=== PATIENT | male | born 1960 | race Caucasian/White ===

== ENCOUNTER 2021-09-02 13:00 | Inpatient (IN) | payer OTHER ==
[~2021-09-02] VITALS: Ht 175.3 cm; Wt 63.5 kg
[~2021-09-02 13:00] MED LIST: IBUP600 PO
[2021-09-02 15:35] LABS: BASOPHILS ABSOLUTE AUTO 0.03 K/mm3 (0.00-0.23); BASOPHILS PERCENT AUTO 0 % (0-2); EOSINOPHILS PERCENT AUTO 0 % (0-6); Hemoglobin 12.2 g/dL (13.5-17.5); IMMATURE GRAN ABSOLUTE AUTO 0.04 K/mm3 (0.00-0.10); IMMATURE GRAN PERCENT AUTO 0 % (0-1); LYMPHOCYTES ABSOLUTE AUTO 1.47 K/mm3 (0.84-5.20); LYMPHOCYTES PERCENT AUTO 13 % (21-46); MONOCYTES ABSOLUTE AUTO 1.35 K/mm3 (0.16-1.47); MONOCYTES PERCENT AUTO 12 % (4-13); Mean Corpuscular HGB 35.5 pg (26.0-34.0); Mean Corpuscular HGB Conc 35.9 g/dL (31.5-36.5); Mean Corpuscular Volume 99 fL (80-100); NEUTROPHILS ABSOLUTE AUTO 8.33 K/mm3 (1.96-9.15); NEUTROPHILS PERCENT AUTO 74 % (41-73); Platelet Count 188 K/mm3 (150-400); RDW Coefficient Variation 12.1 % (11.7-14.2); RDW Standard Deviation 43.9 fL (35.1-46.3); Red Blood Cell Count 3.44 M/mm3 (4.30-5.90); White Blood Cell Count 11.22 K/mm3 (4.00-11.30)
[2021-09-02 16:12] LABS: Influenza A, PCR NEGATIVE (NEGATIVE); Influenza B, PCR NEGATIVE (NEGATIVE); Resp Syncytial Virus, PCR NEGATIVE (NEGATIVE); SARS-Cov-2 (COVID-19) PCR, MMC NEGATIVE (NEGATIVE)
[2021-09-02 18:55] LABS: Alanine Aminotransfer (ALT/SGP 129 U/L (12-78); Albumin, Blood 2.9 g/dL (3.4-5.0); Albumin/Globulin Ratio 0.6 (0.8-1.8); Alk Phos 78 U/L (50-136); Anion Gap 8 mmol/L (6-16); Aspartate Aminotrans (AST/SGOT 124 U/L (12-37); Bilirubin, Total 1.3 mg/dL (0.1-1.0); Blood Urea Nitrogen 10 mg/dL (8-24); Bun/Creatinine Ratio 21.6 (12.0-20.0); CO2, Blood 21 mmol/L (21-32); Calcium, Blood 8.6 mg/dL (8.5-10.1); Chloride, Blood 102 mmol/L (98-108); Creatinine, Blood 0.46 mg/dL (0.60-1.20); Globulin, Blood 4.8 g/dL (2.2-4.0); Glomerular Filtration Rate >60 (60-); Glucose, Blood 173 mg/dL (70-99); Potassium, Blood 3.7 mmol/L (3.5-5.5); Sodium, Blood 131 mmol/L (136-145); Total Protein, Blood 7.7 g/dL (6.4-8.2)
--- NOTE | 2021-09-02 20:26 | NUR ---
PT ARRIVED FROM ED AT 1999 AND WAS ADMITTED IN 213
[2021-09-03 04:17] LABS: BASOPHILS ABSOLUTE AUTO 0.06 K/mm3 (0.00-0.23); BASOPHILS PERCENT AUTO 1 % (0-2); EOSINOPHILS ABSOLUTE AUTO 0.04 K/mm3 (0.00-0.68); EOSINOPHILS PERCENT AUTO 0 % (0-6); Hematocrit 30.4 % (37.0-53.0); IMMATURE GRAN ABSOLUTE AUTO 0.06 K/mm3 (0.00-0.10); IMMATURE GRAN PERCENT AUTO 1 % (0-1); LYMPHOCYTES ABSOLUTE AUTO 3.63 K/mm3 (0.84-5.20); LYMPHOCYTES PERCENT AUTO 27 % (21-46); MONOCYTES ABSOLUTE AUTO 2.05 K/mm3 (0.16-1.47); MONOCYTES PERCENT AUTO 16 % (4-13); Mean Corpuscular HGB 35.7 pg (26.0-34.0); Mean Corpuscular HGB Conc 36.2 g/dL (31.5-36.5); Mean Corpuscular Volume 99 fL (80-100); Mean Platelet Volume 9.7 fL (9.1-12.4); NEUTROPHILS PERCENT AUTO 56 % (41-73); Platelet Count 169 K/mm3 (150-400); RDW Coefficient Variation 12.1 % (11.7-14.2); RDW Standard Deviation 43.8 fL (35.1-46.3); Red Blood Cell Count 3.08 M/mm3 (4.30-5.90); White Blood Cell Count 13.24 K/mm3 (4.00-11.30)
--- NOTE | 2021-09-03 04:25 | NUR ---
PT REMAINS IN BED ALL NIGHT SINCE HE ARRIVED IN THIS RM FROM THE ED. ALERT AND ORIENTED WITH EPISODES OF FORGETFULNESS. HE HAS BROKEN LEFT HIP, AFFECTED AREA IS OBSERVED TO BE SWOLLEN WHILE PT HAS DIFFICULTY IN MOVING THE LEFT LEG. HE REMAINS LYING IN A SUPINE POSITION, STAFF ATTEMPTED TO ASSIST HIM WITH CLEANING AND REPOSITIONING MULTIPLE TIMES AND WERE UNSUCCESSFUL PT REFUSED TO COOPERATE. HE IS MEDICATED FOR PAIN, VITAL SIGNS ARE ACCEPTABLE, CIRCULATION IN THE LOWER EXTREMITY IS ACCEPTABLE EVIDENCED BY WARMTH, PALPABLE PULSE, AND CAP REFILL. HIS CALL LIGHT WAS PLACED NEAR HIM AND WAS ENCOURAGED TO CALL FOR HELP WHEN ASSISTANCE IS NEEDED HE IS MONITORED.
[2021-09-03 05:01] LABS: Alanine Aminotransfer (ALT/SGP 111 U/L (12-78); Albumin, Blood 2.8 g/dL (3.4-5.0); Albumin/Globulin Ratio 0.7 (0.8-1.8); Alk Phos 75 U/L (50-136); Anion Gap 9 mmol/L (6-16); Aspartate Aminotrans (AST/SGOT 107 U/L (12-37); Bilirubin, Total 1.9 mg/dL (0.1-1.0); Blood Urea Nitrogen 11 mg/dL (8-24); Bun/Creatinine Ratio 24.1 (12.0-20.0); CO2, Blood 23 mmol/L (21-32); Calcium, Blood 8.7 mg/dL (8.5-10.1); Chloride, Blood 101 mmol/L (98-108); Creatinine, Blood 0.46 mg/dL (0.60-1.20); Globulin, Blood 4.2 g/dL (2.2-4.0); Glomerular Filtration Rate >60 (60-); Glucose, Blood 109 mg/dL (70-99); Potassium, Blood 3.8 mmol/L (3.5-5.5); Sodium, Blood 133 mmol/L (136-145)
--- NOTE | 2021-09-03 13:41 | NUR ---
History, Chart, Medications and Allergies reviewed before start of procedure.Pre-Op teaching done. Pt verbalizes understanding. Lungs clear T/O to Auscultation.
--- NOTE | 2021-09-03 17:05 | NUR ---
09/03/21 1705 Lauren Wang INITIAL OR END TIME OF 163--INCIDENT WHERE PATIENT LEG FELL IN HANA TABLE. ANTONINO RETURNED TO OR TO CHECK PATIENT AND XR CALL BACK TO CHECK HIP NAIL PLACEMENT. NAIL PLACEMENT OK'D AND PATIENT DOING WELL. OUT OF OR TIME 1656.
--- NOTE | 2021-09-03 18:20 | NUR ---
PATIENT ARRIVED BACK TO ROOM FROM PACU. AQUACEL DRESSING TO LEFT HIP CDI. PATIENT AWAKENS WHEN ASKED, BUT FALLS BACK TO SLEEP. PATIENT DRANK SOME WATER AND ATE SOME APPLESAUCE, TOLERATED WELL. ADVANCE DIET TO REGULAR PER ORDERS. NO SIGNS OR SYMPTOMS ACUTE DISTRESS NOTED. CALL LIGHT AND WATER IN EASY REACH. ABLE TO MAKE NEEDS AND WANTS KNOWN. ROOM AIR, LUNG SOUNDS DIMINISHED, ENCOURAGED TO COUGH AND DEEP BREATH. WILL MONITOR.
--- NOTE | 2021-09-04 00:05 | NUR ---
PT IN BED AND IS RESTING. DENIES PAIN AT THIS TIME, ASSISTED WITH CARE / ADLS, ASSISTED WITH BATHROOM AND TOILETING NEEDS. ASSISTED WITH TURNING AND REPOSITIONING TO ENHANCE COMFORT, MEDICATED INDICATED. LEFT HIP DRESSING AT THE INCISION SITE IS DRY AND PATENT. PT'S CALL MCCURDY PLACED NEAR HIM AND URGED TO CALL FOR HELP WHEN ASSISTANCE IS NEEDED HE IS MONITORED.
[2021-09-04 04:38] LABS: BASOPHILS ABSOLUTE AUTO 0.01 K/mm3 (0.00-0.23); BASOPHILS PERCENT AUTO 0 % (0-2); EOSINOPHILS PERCENT AUTO 0 % (0-6); Hematocrit 24.9 % (37.0-53.0); Hemoglobin 8.7 g/dL (13.5-17.5); IMMATURE GRAN ABSOLUTE AUTO 0.05 K/mm3 (0.00-0.10); IMMATURE GRAN PERCENT AUTO 0 % (0-1); LYMPHOCYTES ABSOLUTE AUTO 1.99 K/mm3 (0.84-5.20); LYMPHOCYTES PERCENT AUTO 18 % (21-46); MONOCYTES ABSOLUTE AUTO 1.83 K/mm3 (0.16-1.47); MONOCYTES PERCENT AUTO 16 % (4-13); Mean Corpuscular HGB 35.4 pg (26.0-34.0); Mean Corpuscular HGB Conc 34.9 g/dL (31.5-36.5); Mean Corpuscular Volume 101 fL (80-100); Mean Platelet Volume 9.7 fL (9.1-12.4); NEUTROPHILS ABSOLUTE AUTO 7.38 K/mm3 (1.96-9.15); NEUTROPHILS PERCENT AUTO 66 % (41-73); Platelet Count 159 K/mm3 (150-400); RDW Coefficient Variation 12.1 % (11.7-14.2); RDW Standard Deviation 45.1 fL (35.1-46.3); Red Blood Cell Count 2.46 M/mm3 (4.30-5.90); White Blood Cell Count 11.26 K/mm3 (4.00-11.30)
[2021-09-04 05:10] LABS: Alanine Aminotransfer (ALT/SGP 79 U/L (12-78); Albumin, Blood 2.2 g/dL (3.4-5.0); Albumin/Globulin Ratio 0.6 (0.8-1.8); Alk Phos 61 U/L (50-136); Anion Gap 8 mmol/L (6-16); Aspartate Aminotrans (AST/SGOT 79 U/L (12-37); Bilirubin, Total 1.4 mg/dL (0.1-1.0); Blood Urea Nitrogen 9 mg/dL (8-24); Bun/Creatinine Ratio 19.2 (12.0-20.0); CO2, Blood 22 mmol/L (21-32); Calcium, Blood 7.9 mg/dL (8.5-10.1); Chloride, Blood 101 mmol/L (98-108); Creatinine, Blood 0.47 mg/dL (0.60-1.20); Globulin, Blood 3.9 g/dL (2.2-4.0); Glomerular Filtration Rate >60 (60-); Glucose, Blood 145 mg/dL (70-99); Potassium, Blood 3.7 mmol/L (3.5-5.5); Sodium, Blood 131 mmol/L (136-145); Total Protein, Blood 6.1 g/dL (6.4-8.2)
--- NOTE | 2021-09-04 16:42 | NUR ---
PATIENT CURRENTLY LYING IN BED WITH NO SIGNS OR SYMPTOMS ACUTE DISTRESS NOTED. MEDICATED FOR PAIN PER ORDERS TODAY, MED EFFECTIVE. PATIENT REFUSED TO WORK WITH PT/OT TODAY. PATIENT IS DOING LEG EXERCISES IN BED OFTEN. HE SAYS HE WILL WORK WITH THERAPY TOMORROW. NO COMPLAINTS OF NAUSEA VOICED. WILL MONITOR.
--- NOTE | 2021-09-05 04:25 | NUR ---
PT IS RECOVERING FROM LEFT HIP SURGERY POST FALL AND FRACTURE. HE IS IN BED AT THIS TIME WHERE HE REMAINS THROUGHOUT THE NIGHT AND IS RESTING COMFORTABLY IN STABLE CONDITION. HE IS ASSISTED WITH HIS CARE AND ADLS, ASSISTED WITH BATHROOM AND TOILETING NEEDS, MEDICATED INDICATED. HE HAS REPORTED LEFT HIP PAIN AT THE SX SITE WHICH WAS RELIEVED BY HYDROCODONE, NO OTHER COMPLAINTS. HE IS ASSISTED WITH POSITION CHANGE TO PROMOTE COMFORT, CIRCULATION AND AIR EXCHANGE. ENCOURAGED TO PERFORMED COUGH AND DEEP BREATHING. LEFT HIP DRESSING IS IN PLACE AND PATENT, PALPABLE PEDAL PULSE NOTED. PT WAS GIVEN HIS CALL MCCURDY AND WAS REMINDED TO CALL FOR HELP WHEN ASSISTANCE IS NEEDED HE IS MONITORED.
[2021-09-05 04:37] LABS: BASOPHILS ABSOLUTE AUTO 0.06 K/mm3 (0.00-0.23); BASOPHILS PERCENT AUTO 1 % (0-2); EOSINOPHILS PERCENT AUTO 1 % (0-6); Hematocrit 24.2 % (37.0-53.0); Hemoglobin 8.4 g/dL (13.5-17.5); IMMATURE GRAN ABSOLUTE AUTO 0.02 K/mm3 (0.00-0.10); IMMATURE GRAN PERCENT AUTO 0 % (0-1); LYMPHOCYTES ABSOLUTE AUTO 3.17 K/mm3 (0.84-5.20); LYMPHOCYTES PERCENT AUTO 39 % (21-46); MONOCYTES ABSOLUTE AUTO 1.54 K/mm3 (0.16-1.47); MONOCYTES PERCENT AUTO 19 % (4-13); Mean Corpuscular HGB 35.4 pg (26.0-34.0); Mean Corpuscular HGB Conc 34.7 g/dL (31.5-36.5); Mean Corpuscular Volume 102 fL (80-100); Mean Platelet Volume 9.8 fL (9.1-12.4); NEUTROPHILS ABSOLUTE AUTO 3.19 K/mm3 (1.96-9.15); NEUTROPHILS PERCENT AUTO 40 % (41-73); Platelet Count 164 K/mm3 (150-400); RDW Coefficient Variation 11.9 % (11.7-14.2); RDW Standard Deviation 44.2 fL (35.1-46.3); Red Blood Cell Count 2.37 M/mm3 (4.30-5.90); White Blood Cell Count 8.08 K/mm3 (4.00-11.30)
[2021-09-05 05:08] LABS: Alanine Aminotransfer (ALT/SGP 71 U/L (12-78); Albumin, Blood 2.1 g/dL (3.4-5.0); Albumin/Globulin Ratio 0.6 (0.8-1.8); Alk Phos 60 U/L (50-136); Anion Gap 6 mmol/L (6-16); Aspartate Aminotrans (AST/SGOT 102 U/L (12-37); Bilirubin, Total 0.9 mg/dL (0.1-1.0); Blood Urea Nitrogen 11 mg/dL (8-24); CO2, Blood 23 mmol/L (21-32); Calcium, Blood 7.6 mg/dL (8.5-10.1); Chloride, Blood 102 mmol/L (98-108); Creatinine, Blood 0.41 mg/dL (0.60-1.20); Globulin, Blood 3.5 g/dL (2.2-4.0); Glomerular Filtration Rate >60 (60-); Glucose, Blood 98 mg/dL (70-99); Potassium, Blood 3.9 mmol/L (3.5-5.5); Sodium, Blood 131 mmol/L (136-145); Total Protein, Blood 5.6 g/dL (6.4-8.2)
[2021-09-05 08:56] LABS: U Amphetamine Screen Not Detected; U Barbituate Screen Not Detected; U Benzodiazapine Screen DETECTED; U Methamphetamine Screen Not Detected
[2021-09-05 08:57] LABS: U Buprenorphine Screen Not Detected; U Cannabinoids Screen DETECTED; U Cocaine Screen Not Detected; U Methadone Screen Not Detected; U Opiates Screen DETECTED; U Oxycodone Screen Not Detected; U Phencyclidine Screen Not Detected; U Propoxyphene Screen Not Detected
--- NOTE | 2021-09-05 14:33 | NUR ---
THIS NURSE IS TAKING OVER CARE AT THIS TIME.
--- NOTE | 2021-09-05 16:39 | NUR ---
SHIFT SUMMARY: POD 2 LEFT HIP GAMMA NAILING PATIENT IS ALERT AND ORIENTED X2 AND IS INTERMITTENTLY MORE CONFUSED AT TIMES. VS ARE WNL AND IS ON RA. PAIN IS MANAGED WITH 1 NORCO PO. LEFT HIP HAS AQUACEL THAT IS C/D/I. HE CAN WIGGLE TOES AND FINGERS. PATIENT HAS REFUSED PT/OT TODAY AGAIN. CALLS APPROPRIATELY. CALL LIGHT WITHIN REACH. HE TOLERATES PO INTAKE AND IS VOIDING. THE PLAN IS TO ENCOURAGE PT/OT AND INTAKE OF FLUIDS.
[2021-09-06 04:45] LABS: BASOPHILS ABSOLUTE AUTO 0.07 K/mm3 (0.00-0.23); BASOPHILS PERCENT AUTO 1 % (0-2); EOSINOPHILS ABSOLUTE AUTO 0.12 K/mm3 (0.00-0.68); EOSINOPHILS PERCENT AUTO 2 % (0-6); Hematocrit 25.5 % (37.0-53.0); IMMATURE GRAN ABSOLUTE AUTO 0.03 K/mm3 (0.00-0.10); IMMATURE GRAN PERCENT AUTO 0 % (0-1); LYMPHOCYTES ABSOLUTE AUTO 2.82 K/mm3 (0.84-5.20); LYMPHOCYTES PERCENT AUTO 38 % (21-46); MONOCYTES ABSOLUTE AUTO 1.54 K/mm3 (0.16-1.47); MONOCYTES PERCENT AUTO 21 % (4-13); Mean Corpuscular HGB 35.9 pg (26.0-34.0); Mean Corpuscular HGB Conc 35.3 g/dL (31.5-36.5); Mean Corpuscular Volume 102 fL (80-100); Mean Platelet Volume 9.2 fL (9.1-12.4); NEUTROPHILS ABSOLUTE AUTO 2.82 K/mm3 (1.96-9.15); NEUTROPHILS PERCENT AUTO 38 % (41-73); Platelet Count 209 K/mm3 (150-400); RDW Coefficient Variation 11.9 % (11.7-14.2); RDW Standard Deviation 43.7 fL (35.1-46.3); Red Blood Cell Count 2.51 M/mm3 (4.30-5.90)
--- NOTE | 2021-09-06 05:10 | NUR ---
PT IS IN BED AT THIS TIME WHERE HE REMAINS DURING THE NIGHT AND IS RESTING COMFORTABLY. HAS VERBALIZED PAIN IN THE LEFT HIP AT THE INCISION SITE AND WAS MEDICATED ACCORDINGLY WITH POSITIVE EFFECT, NO OTHER COMPLAINTS. HE IS RECOVERING FROM LEFT HIP SURGERY POST FALL. SURGERY SITE ASSESSED AND IS COVERED WITH PATENT DRESSING. GOOD CIRCULATION NOTED IN THE LEFT LOWER LEG EVIDENCED BY PALPABLE PULSE AND < 3SECS CAP REFILL ALONG WITH TOLERABLE LEFT FOOT MOVEMENT. PT IS ALERT AND ORIENTED, ASSISTED WITH CARE AND ADLS, ASSISTED WITH BATHROOM AND TOILETING NEEDS. HIS CALL LIGHT WAS PLACED NEAR HIM AND WAS URGED TO CALL FOR HELP WHEN ASSISTANCE IS NEEDED.
[2021-09-06 05:29] LABS: Alanine Aminotransfer (ALT/SGP 78 U/L (12-78); Albumin, Blood 2.1 g/dL (3.4-5.0); Albumin/Globulin Ratio 0.5 (0.8-1.8); Alk Phos 67 U/L (50-136); Anion Gap 6 mmol/L (6-16); Aspartate Aminotrans (AST/SGOT 124 U/L (12-37); Blood Urea Nitrogen 8 mg/dL (8-24); Bun/Creatinine Ratio 21.2 (12.0-20.0); CO2, Blood 24 mmol/L (21-32); Calcium, Blood 8.1 mg/dL (8.5-10.1); Chloride, Blood 102 mmol/L (98-108); Creatinine, Blood 0.38 mg/dL (0.60-1.20); Globulin, Blood 3.9 g/dL (2.2-4.0); Glomerular Filtration Rate >60 (60-); Glucose, Blood 104 mg/dL (70-99); Potassium, Blood 3.7 mmol/L (3.5-5.5); Sodium, Blood 132 mmol/L (136-145)
--- NOTE | 2021-09-06 07:47 | NUR ---
CARE ASSUMPTION PT A&O X4, SOMEWHAT ANXIOUS, OTHERWISE CALM & COOPERATIVE. VSS. SPO2 > 92% ON RA. PT REPORTS PAIN TO L HIP REGION "NOT THAT BAD". PT FURTHER STATES, " LONG I'M JUST LAYING HERE I'M FINE. IT'S WHEN I MOVE WHEN IT'S BAD." PT REPORTS PREVIOUS PAIN MEDICATION REDUCING PAIN. BED ALARM ON FOR FALL RISK. WILL CONTINUE TO MONITOR & PROVIDE CARE.
--- NOTE | 2021-09-06 11:29 | NUR ---
MOBILITY PT REFUSING TO WORK W/ PHYSICAL THERAPY, STATING "I DON'T WANT THEM TOUCHING ME." THIS RN THEN OFFERING ROM EXERCISES W/ PT AGREEABLE TO DO EXERCISES W/ OUT BEING TOUCHED. PT ABLE TO BEND BOTH ANKLES, BRINGING TOES TO & AWAY FROM HIM. PT ABLE TO BEND & LIFT R LEG OFF OF BED, BUT IS UNABLE TO BEND L KNEE &/OR LIFT L LEG OFF OF BED W/ OUT USING HANDS TO LIFT LEG. PT REPORTING PAIN W/ L LEG MOVEMENT. PT COMPLIANT W/ ATTEMPTING ROM INDEPENDENTLY INSTRUCTED. PRINT OUT OF POST HIP FX EXERCISES PROVIDED TO PT W/ PT INTEREST. PT STATING "I'LL GET BUSY DOING THESE [employer] MOTIONS IN HERE." WILL CONTINUE TO ENCOURAGE ACTIVITY.
--- NOTE | 2021-09-06 13:45 | NUR ---
UPDATE PT ABLE TO GET SELF UP TO BSC W/ SBA. PT REQUESTING NOT TO BE TOUCHED OR HAVE ANY ASSISTANCE. PT ABLE TO SLOWLY, INDEPENDENTLY GET TO BSC FROM BED W/ STAFF STANDING CLOSELY BY FOR FALL PRECAUTION. PT UPPER L HIP BANDAGE W/ RED DRAINAGE LEAKING OUT. DRESSING CHANGED W/ PT COOPERATION. PT TOLERATING ACTIVITY TO & FROM BSC & BED FAIRLY WELL. PAIN MEDICATION PROVIDED.
--- NOTE | 2021-09-06 18:48 | NUR ---
SHIFT SUMMARY PT A&O X3. L HIP SURGICAL W/ AQUACEL DRESSINGS X2. UPPER DRESSING CHANGED X1 THIS SHIFT D/T SITE DRAINAGE, LEAKING THROUGH DRESSING. PT REQUESTS HE NOT BE TOUCHED, BUT DOES TOLERATE SOME HANDS ON CARE. PT W/ EPISODES OF VISUAL & AUDIBLE HALLUCINATIONS WHEN ALONE IN RM. PT FOUND SPEAKING TO IV PUMP THIS EVENING, STATING THE PUMP WAS TALKING TO HIM. PT THEN AGGITATED, REQUESTING IV PUMP BE SHUT OFF. PT TOLERATING PO INTAKE WELL. THIS NURSE DISCONNECTED IV PER PT REQUEST W/ PT SAYING "THANK YOU" & NO FURTHER EVENTS.
--- NOTE | 2021-09-07 04:09 | NUR ---
PT IN BED AND IS RESTING IN STABLE CONDITION, DENIES PAIN AT THIS TIME. ASSISTED WITH CARE AND ADLS, MEDICATED INDICATED. ASSISTED WITH BATHROOM AND TOILETING NEEDS. HIS CALL LIGHT WAS PLACED NEAR HIM AND WAS ENCOURAGED TO CALL FOR HELP WHEN ASSISTANCE IS NEEDED HE IS MONITORED.
[2021-09-07 05:48] LABS: Albumin, Blood 2.1 g/dL (3.4-5.0); Anion Gap 7 mmol/L (6-16); Blood Urea Nitrogen 8 mg/dL (8-24); Bun/Creatinine Ratio 20.2 (12.0-20.0); CO2, Blood 25 mmol/L (21-32); Chloride, Blood 103 mmol/L (98-108); Glomerular Filtration Rate >60 (60-); Glucose, Blood 129 mg/dL (70-99); Phosphorus, Blood 3.4 mg/dL (2.5-4.9); Potassium, Blood 3.5 mmol/L (3.5-5.5); Sodium, Blood 135 mmol/L (136-145)
[2021-09-07 09:11] LABS: BASOPHILS ABSOLUTE AUTO 0.04 K/mm3 (0.00-0.23); BASOPHILS PERCENT AUTO 1 % (0-2); EOSINOPHILS PERCENT AUTO 3 % (0-6); Hematocrit 25.5 % (37.0-53.0); IMMATURE GRAN ABSOLUTE AUTO 0.03 K/mm3 (0.00-0.10); IMMATURE GRAN PERCENT AUTO 0 % (0-1); LYMPHOCYTES ABSOLUTE AUTO 1.97 K/mm3 (0.84-5.20); LYMPHOCYTES PERCENT AUTO 29 % (21-46); MONOCYTES ABSOLUTE AUTO 1.16 K/mm3 (0.16-1.47); MONOCYTES PERCENT AUTO 17 % (4-13); Mean Corpuscular HGB 35.7 pg (26.0-34.0); Mean Corpuscular HGB Conc 35.3 g/dL (31.5-36.5); Mean Corpuscular Volume 101 fL (80-100); NEUTROPHILS ABSOLUTE AUTO 3.38 K/mm3 (1.96-9.15); NEUTROPHILS PERCENT AUTO 50 % (41-73); Platelet Count 248 K/mm3 (150-400); RDW Coefficient Variation 12.1 % (11.7-14.2); RDW Standard Deviation 44.3 fL (35.1-46.3); Red Blood Cell Count 2.52 M/mm3 (4.30-5.90); White Blood Cell Count 6.78 K/mm3 (4.00-11.30)
[2021-09-07 09:36] LABS: International Normalized Ratio 1.09; Prothrombin Time Results 11.4 Sec (9.7-11.5)
--- NOTE | 2021-09-07 09:39 | NUR ---
INCISION OOZING NOTIFIED DR MUÑIZ OF SIGNIFICANT SANGUINEOUS OOZING AT LEFT HIP INCISION. AQUACELS FULLY SATURATED. ORDERS OBTAINED FOR STAT CBC, PT/INR, NPO, AND APPLICATION OF EXUDRY, NARCISO WRAP TO THIGH, GROIN, AND WAIST. LABS OBTAINED. PATIENT STRICTLY REFUSING TO ALLOW RN TO TOUCH HIS SURGICAL LEG TO APPLY EXUDRY AND NARCISO WRAP. THREATENS HE WILL PHYSICALLY HIT ANY STAFF WHO ATTEMPT TO MOVE OR TOUCH HIS SURGICAL LEG. EXPLAINED THE RISK OF CONTINUED OOZING WITHOUT NARCISO WRAP. PATIENT CONTINUES TO REFUSE. DR MUÑIZ NOTIFIED OF REFUSAL.
--- NOTE | 2021-09-07 13:14 | NUR ---
REFUSING SURGERY DR MUÑIZ CAME TO PATIENT'S ROOM TO EXAMINE INCISION. AQUACELS WERE REPLACED WITH EXUDRY AND TENSION TAPE. DR MUÑIZ RECOMMENDED RETURN TO SURGERY FOR I&D. PATIENT AGREEABLE AT FIRST. ABOUT 1 HOUR LATER THE PATIENT DECIDED TO REFUSE SURGERY. THE PURPOSE OF THE SURGERY WAS EXPLAINED TO PATIENT, THAT IT WAS RECOMMENDED TO HELP STOP THE OOZING FROM HIS INCISION. PATIENT STILL REFUSED. DR MUÑIZ WAS NOTIFIED OF REFUSAL AND THEN ORDERED STAT CT SCAN. PATIENT ALSO REFUSED STAT CT SCAN STATING HE DID NOT WANT TO BE MOVED FROM HIS BED. NOTIFIED DR MUÑIZ AGAIN WHO STATED HE WOULD COME SPEAK WITH PATIENT.
[2021-09-07 13:23] LABS: Hematocrit 25.5 % (37.0-53.0)
--- NOTE | 2021-09-07 13:40 | NUR ---
Dr. Miller and this RN in to explaine risk of not having surgery. Dr. Miller explaine at lenghth the importance and need to have surgery this afternoon. Patient states he does not want surgery at this time. His main concern is having something to eat.
--- NOTE | 2021-09-07 14:03 | NUR ---
SURGERY REFUSAL UPDATE DR MUÑIZ DISCUSSED SURGERY AND CT SCAN WITH PATIENT. PATIENT REFUSED BOTH. REFUSAL WAS DOCUMENTED AND SIGNED BY PATIENT AND DR MUÑIZ AND PLACED IN CHART BINDER. REGULAR DIET ORDER WAS RESTARTED. NEW DRESSING WITH EXUDRY, TENSTION TAPE, AND NARCISO WRAP WAS APPLIED TO LEFT THIGH, HIP, AND GROIN. DR MUÑIZ DISCUSSED SITUATION WITH JUAN CARLOS SKY, RN NURSING HARDWARE TECHNICIAN, AND WITH DR JULIO C ESTRADA.
--- NOTE | 2021-09-07 17:09 | NUR ---
SHIFT SUMMARY PATIENT ALERT AND ORIENTED. REFUSED I&D AND CT SCAN TODAY. SANGUINEOUS OOZING FROM LEFT HIP UPPER INCISION. DR MUÑIZ AWARE. PATIENT REFUSES TO ALLOW ANY STAFF TO TOUCH LEG OR TO ASSIST WITH REPOSITIONS. DRESSING TO LEFT HIP REPLACED 3 TIMES THIS SHIFT. CURRENTLY EXUDRY, TENSION TAPE, AND NARCISO WRAP IN PLACE. USING URINAL IN BED. TOLERATES REGULAR DIET. TO BE NPO AFTER MIDNIGHT. SALINE LOCKED. MEDICATED FOR PAIN PRN.
[2021-09-07 18:58] LABS: Hematocrit 25.4 % (37.0-53.0); Hemoglobin 9.1 g/dL (13.5-17.5)
[2021-09-08 01:14] LABS: BASOPHILS ABSOLUTE AUTO 0.06 K/mm3 (0.00-0.23); BASOPHILS PERCENT AUTO 1 % (0-2); EOSINOPHILS PERCENT AUTO 5 % (0-6); Hematocrit 24.2 % (37.0-53.0); Hemoglobin 8.5 g/dL (13.5-17.5); IMMATURE GRAN ABSOLUTE AUTO 0.05 K/mm3 (0.00-0.10); IMMATURE GRAN PERCENT AUTO 1 % (0-1); LYMPHOCYTES PERCENT AUTO 35 % (21-46); MONOCYTES ABSOLUTE AUTO 1.84 K/mm3 (0.16-1.47); MONOCYTES PERCENT AUTO 22 % (4-13); Mean Corpuscular HGB 35.4 pg (26.0-34.0); Mean Corpuscular HGB Conc 35.1 g/dL (31.5-36.5); Mean Corpuscular Volume 101 fL (80-100); Mean Platelet Volume 9.3 fL (9.1-12.4); NEUTROPHILS ABSOLUTE AUTO 3.13 K/mm3 (1.96-9.15); NEUTROPHILS PERCENT AUTO 37 % (41-73); Platelet Count 269 K/mm3 (150-400); RDW Coefficient Variation 12.3 % (11.7-14.2); RDW Standard Deviation 44.6 fL (35.1-46.3); White Blood Cell Count 8.48 K/mm3 (4.00-11.30)
[2021-09-08 01:45] LABS: Anion Gap 6 mmol/L (6-16); Blood Urea Nitrogen 10 mg/dL (8-24); Bun/Creatinine Ratio 23.9 (12.0-20.0); CO2, Blood 25 mmol/L (21-32); Chloride, Blood 103 mmol/L (98-108); Creatinine, Blood 0.42 mg/dL (0.60-1.20); Glomerular Filtration Rate >60 (60-); Glucose, Blood 107 mg/dL (70-99); Phosphorus, Blood 3.9 mg/dL (2.5-4.9); Potassium, Blood 3.9 mmol/L (3.5-5.5); Sodium, Blood 134 mmol/L (136-145)
--- NOTE | 2021-09-08 07:17 | NUR ---
SHIFT SUMMARY POD5 GAMMA NAILING ON L HIP. PT REPORTS MINIMAL PAIN AT REST AND EXTREME PAIN WITH MOVEMENT. PAIN MANAGED WITH NORCO AND TYLENOL LAST NIGHT. L HIP WITH GAUZE AND PRESSURE DRESSING WIH MODERATE SEROSANG DRAINAGE. PT'S DRESSING HASN'T BEEN CHANGED T/O SHIFT. ANTICIPATING FOR DR. QUINTERO TO ACCESS THE PT THIS MORNING. PT HAS BEEN REFUSING ANY PROCEDURE, AND WOULD LIKE TO HAVE HIS BREAKFAST SERVE. HE HAS BEEN NPO SINCE MIDNIGHT. PT ALSO REPORTS SOME TINGLING SENSATION LAST NIGHT ON LLE, DENIES NUMBNESS. CAP REFILL WNL, PEDAL PULSES STRONG. AOX3. USED URINAL AT NIGHT. VOIDING ADEQUATELY.CALL LIGHT WITHIN REACH.
--- NOTE | 2021-09-08 17:01 | NUR ---
PT SET OFF BED ALARM HE WAS ATTEMPTING TO GET OOB WITHOUT ASSIST TO COMMODE. THIS RN AND DOCUMENT MANAGEMENT TECHNICIAN TO ROOM. PT REFUSES TO LET STAFF TOUCH HIM AND VERBALLY THREATENS AND CURSES AT STAFF. PT REFUSES TO USE WALKER OR WEAR NONSLIP SOCKS. THREE STAFF MEMBERS STANDBY ASSIST TO COMMODE. PT HAD MODERATE AMT SS DRAINAGE FROM LEFT HIP INCISION. LINENS, GOWN AND DRESSINGS CHANGED NEEDED. GAUZE AND PRESSURE TAPE APPLIED TO LEAKING AREA OF INCISION AFTER IT WAS CLEANED. ICE PACK TO LEFT HIP. LOVENOX HELD AT THIS TIME TO CHECK WITH MD TO SEE IF IT SHOULD BE GIVEN R/T BLEEDING.
--- NOTE | 2021-09-08 18:19 | NUR ---
PT HAS BEEN STABLE THIS SHIFT. PT IS UNCOOPERATIVE TO MOST CARE. PT IS DELUSIONAL AT TIMES, TALKING TO SELF AND CUSSING IN ROOM. BED ALARM ON FOR SAFETY. PT POD #5. LEFT HIP HAD DRESSING CHANGE X1 TODAY FOR MODERATE AMOUNT SS DRAINAGE WHEN PT OOB TO COMMODE. LOVENOX HELD PER DR QUINTERO THIS AFTERNOON. PT WORKED WITH THERAPY TO DO EXERCISES IN BED BUT REFUSED TO SIT IN CHAIR OR AMBULATE. PAS TO BLE. PAIN CONTROLLED WITH PRN NORCO. PT MAKENZIE DIET WELL. VOIDING WELL WITH URINAL. PT HAD LARGE BM THIS AFTERNOON. USES CALL LIGHT APPROPRIATELY.
--- NOTE | 2021-09-09 04:42 | NUR ---
SHIFT SUMMARY NO ACUTE CHANGES OVERNIGHT. POD6 GAMMA NAILING FOR R HIP. GAUZE AND PRESSURE TAPE ON SURGICAL SITE WITH MOD SS DRAINAGE. DRESSING UNCHANGED T/O SHIFT. PT REPORTS MOD PAIN 4-6/10 PAIN LEVEL. DENIES N/T. PAIN MANAGED WITH NORCO, MILD FEVER, TYLENOL GIVEN. PT HAS INTERMITTENT DELUSIONS BUT EASILY REORIENT. HE HAS BEEN PLEASANT BUT WANTS TO BE IN CONTROL. TOLERATING PO INTAKE. DENIES N/V. PT USED URINAL AT NIGHT. VOIDING WITHOUT ISSUE. CALL LIGHT WITHIN REACH.
[2021-09-09 05:06] LABS: Hematocrit 26.3 % (37.0-53.0); Hemoglobin 9.5 g/dL (13.5-17.5); Mean Corpuscular HGB 36.8 pg (26.0-34.0); Mean Corpuscular HGB Conc 36.1 g/dL (31.5-36.5); Mean Corpuscular Volume 102 fL (80-100); Mean Platelet Volume 9.4 fL (9.1-12.4); Platelet Count 321 K/mm3 (150-400); RDW Coefficient Variation 12.5 % (11.7-14.2); RDW Standard Deviation 46.3 fL (35.1-46.3); Red Blood Cell Count 2.58 M/mm3 (4.30-5.90); White Blood Cell Count 7.25 K/mm3 (4.00-11.30)
[2021-09-09 06:07] LABS: Alanine Aminotransfer (ALT/SGP 89 U/L (12-78); Albumin, Blood 2.1 g/dL (3.4-5.0); Albumin/Globulin Ratio 0.5 (0.8-1.8); Alk Phos 72 U/L (50-136); Anion Gap 9 mmol/L (6-16); Aspartate Aminotrans (AST/SGOT 92 U/L (12-37); Blood Urea Nitrogen 6 mg/dL (8-24); Bun/Creatinine Ratio 13.7 (12.0-20.0); CO2, Blood 24 mmol/L (21-32); Calcium, Blood 8.4 mg/dL (8.5-10.1); Chloride, Blood 103 mmol/L (98-108); Creatinine, Blood 0.44 mg/dL (0.60-1.20); Globulin, Blood 3.9 g/dL (2.2-4.0); Glomerular Filtration Rate >60 (60-); Glucose, Blood 100 mg/dL (70-99); Sodium, Blood 136 mmol/L (136-145)
--- NOTE | 2021-09-09 18:53 | NUR ---
SHIFT SUMMARY PT POD #6 FOR L HIP GAMMA NAILING. PT SBA TO THE BSC. AQUACEL AND COMPRESSION TAPE TO L HIP. INCISION HAS A HX OF DRAINING QUITE A BIT AND NEEDING FREQUENT DRESSING CHANGES. DRESSING CDI THIS AM. PT REFUSED TO LET THIS RN TOUCH HIS DRESSING AND FURTHER EXAMINE IT LATER ON THIS DAY. PT SEEMS TO POSSIBLY HAVE HALLUCINATIONS AND WILL CALL OUT AT TIMES. VSS. WILL REPORT TO NOC RN.
[2021-09-10 04:33] LABS: Hematocrit 25.6 % (37.0-53.0); Hemoglobin 9.1 g/dL (13.5-17.5)
--- NOTE | 2021-09-10 04:44 | NUR ---
SUMMARY PT PLESANT AND COOPERATIVE THIS SHIFT. PT VOIDED WELL T/OUT SHIFT. PT DRESSING IS CLEAN, DRY AND INTACT. PT DOES CONTINUE TO HAVE PERIODS OF DELLUSIONS AND HALLUCINATIONS. PT CURRENTLY SLEEPING AND BREATHING EASY. CALL LIGHT IN REACH AND PT USES IT APPROPIATELY.
--- NOTE | 2021-09-10 17:23 | NUR ---
SUMMARY NO ACUTE CHANGES T/O SHIFT. PT ALLOWED ASSESSMENT THIS AM. HAS REPORTED VISITS FROM ALIENS. VOIDING AND TOLERATING PO WITHOUT DIFFICULTY. CALL LIGHT IN REACH.
--- NOTE | 2021-09-11 05:17 | NUR ---
SHIFT SUMMARY NO ACUTE CHANGES OVERNIGHT. POD8 GAMMA NAILING ON L HIP. PT'S L HIP WITH AQUACEL DRESSING AND TAPE-GAUZE REMAIN CDI T/O SHIFT. REDNESS NOTED AROUND THE DRESSING. PT REPORTS SOME ITCHING ON HIS BACK, APPLIED ANTI ITCH CREAM AND POWDER. PT REPORTS SOME RELIEF. TOLERATING PO, DENIES N/V. PT REPOSITIONS HIMSELF IN BED. VOIDING ADEQUATELY USING URINAL. VSS. PT REPORTS MIN-MODERATE PAIN, PAIN MANAGED WITH NORCO AND TYLENOL. CALL LIGHT WITHIN REACH. WILL PROVIDE REPORT TO ONCOMING NURSE.
[2021-09-11 05:52] LABS: Hematocrit 28.9 % (37.0-53.0)
--- NOTE | 2021-09-11 13:12 | NUR ---
PT TRANSFERRED SELF TO BSC HAD BM AND VOIDED. TRANSFERRED SELF BACK TO BED. CALL LIGHT IN REACH. STATED GOING TO TAKE NAP.
--- NOTE | 2021-09-11 14:30 | NUR ---
DR MUÑIZ IN TO SEE PT CHANGED SUPERIOR DRESSING, SCANT DRAINAGE NOTED. LEFT AQUACEL IN PLACE. OKAY TO DC FROM DR MUÑIZ'S STANDPOINT.
--- NOTE | 2021-09-11 17:17 | NUR ---
SUMMARY NO ACUTE CHANGES. PT CONTINUES TO HAVE DELUSIONS AND APPEARS PARANOID AT TIMES. ALLOWED DR TO CHANGE PROXIMAL DRESSING TO L HIP. SCANT AMOUNT DRAINAGE NOTED TO DRESSING. PT GOT UP TO BSC AND HAD BM THIS AFTERNOON. CALL LIGHT IN REACH.
--- NOTE | 2021-09-12 05:35 | NUR ---
PT REMAINS IN BED IN BED DURING THE NIGHT AND IS RESTING COMFORTABLY IN STABLE CONDITION. ALERT AND ORIENTED WITH FLUCTUATION IN HIS MENTATION. C/O PAIN AND MEDICATED WITH ORAL PAIN MED NEEDED, NO OTHER COMPLAINTS. HE IS ASSISTED WITH HIS CARE AND ADLS, MEDICATED ORDERED. HE IS ASSISTED WITH POSITION CHANGE TO ENHANCE COMFORT. LEFT HIP INCISION DRESSING IS PATENT AND PT IS ABLE TO MOVE HIS LOWER EXTREMITIES TOLERATED PER CONDITION. HIS CALL LIGHT WAS GIVEN TO HIM AND WAS REMINDED TO CALL FOR HELP WHEN ASSISTANCE IS NEEDED HE IS MONITORED.
[2021-09-12 06:29] LABS: Hematocrit 29.2 % (37.0-53.0)
[2021-09-12] MEDS ORDERED: ACET325 PO (12:44)
--- NOTE | 2021-09-12 14:47 | NUR ---
DISCHARGE NOTE: PATIENT WAS EDUCATED ON DISCHARGE INSTRUCTIONS. PATIENT KEPT INTURUPTING WHILE TRYING TO GIVE INSTRUCTIONS AND SAYING HE IS GOING TO "EBER THIS PLACE!". LEFT HIP HAS AQACEL THAT IS C/D/I. PATIENT IS VOIDING, TOLERATING PO INTAKE, AND PAIN IS MANAGED. PATIENT IS ABLE TO MOVE FINGERS AND TOES WHEN ASKED. HE IS A SBA TO THE COMMODE. PATIENT IS DRESSED. CALL LIGHT WITHIN REACH. AWAITING FOR TRANSPORT TO ARRIVE TO TAKE HIM BACK TO HIS HOME.
== END 2021-09-12 15:25 | disposition home or self-care (01) | DRG 481 ==
LOC: ER 13:00 → SURS 17:02 → ERHOLD 17:02 → SURS 20:12
PROVIDERS: Emergency Medicine; Family Medicine; Internal Medicine; Orthopaedic Surgery; Student in an Organized Health Care Education/Training Program; ADMIT Internal Medicine
PROC: 0QS736Z Reposition Left Upper Femur with Intramedullary Internal Fixation Device, Percutaneous Approach (ICD-10-PCS; principal; 2021-09-03 14:30)
DX: S72.142A Displaced intertrochanteric fracture of left femur, initial encounter for closed fracture (principal); E87.1 Hypo-osmolality and hyponatremia; D62 Acute posthemorrhagic anemia; Z20.822 Contact with and (suspected) exposure to COVID-19; R74.01 Elevation of levels of liver transaminase levels; R03.0 Elevated blood-pressure reading, without diagnosis of hypertension; F28 Other psychotic disorder not due to a substance or known physiological condition; F10.129 Alcohol abuse with intoxication, unspecified; F17.210 Nicotine dependence, cigarettes, uncomplicated; Z28.21 Immunization not carried out because of patient refusal; W18.30XA Fall on same level, unspecified, initial encounter
CPT/HCPCS: 0241U; 36415; 71045; 73502; 73552; 73700; 80053; 80069; 85014; 85018; 85025; 85027; 85610; 93005; 93010; 94760; 94762; 96374; 96375; 97110; 97162; 97165; 97530; 99285-25; A9270; C1713; J0690; J1100; J1650; J2060; J2405; J2704; J3010; J3411; J3475; J7030; J7042; J7120

== ENCOUNTER 2021-09-14 14:57 | Emergency (ER) | payer OTHER ==
[~2021-09-14] VITALS: Ht 182.9 cm; Wt 74.8 kg
[~2021-09-14 14:57] MED LIST changes: +ACET325 PO
[2021-09-14 16:03] LABS: BASOPHILS ABSOLUTE AUTO 0.11 K/mm3 (0.00-0.23); BASOPHILS PERCENT AUTO 1 % (0-2); EOSINOPHILS ABSOLUTE AUTO 0.24 K/mm3 (0.00-0.68); EOSINOPHILS PERCENT AUTO 3 % (0-6); Hemoglobin 11.6 g/dL (13.5-17.5); IMMATURE GRAN ABSOLUTE AUTO 0.07 K/mm3 (0.00-0.10); IMMATURE GRAN PERCENT AUTO 1 % (0-1); LYMPHOCYTES ABSOLUTE AUTO 3.56 K/mm3 (0.84-5.20); LYMPHOCYTES PERCENT AUTO 39 % (21-46); MONOCYTES ABSOLUTE AUTO 1.17 K/mm3 (0.16-1.47); MONOCYTES PERCENT AUTO 13 % (4-13); Mean Corpuscular HGB 35.7 pg (26.0-34.0); Mean Corpuscular HGB Conc 35.2 g/dL (31.5-36.5); Mean Corpuscular Volume 102 fL (80-100); Mean Platelet Volume 8.7 fL (9.1-12.4); NEUTROPHILS ABSOLUTE AUTO 4.03 K/mm3 (1.96-9.15); NEUTROPHILS PERCENT AUTO 44 % (41-73); Platelet Count 447 K/mm3 (150-400); RDW Coefficient Variation 12.7 % (11.7-14.2); RDW Standard Deviation 47.6 fL (35.1-46.3); Red Blood Cell Count 3.25 M/mm3 (4.30-5.90); White Blood Cell Count 9.18 K/mm3 (4.00-11.30)
[2021-09-14 16:23] LABS: Anion Gap 9 mmol/L (6-16); Blood Urea Nitrogen 6 mg/dL (8-24); Bun/Creatinine Ratio 15.7 (12.0-20.0); CO2, Blood 25 mmol/L (21-32); Calcium, Blood 8.6 mg/dL (8.5-10.1); Chloride, Blood 95 mmol/L (98-108); Creatinine, Blood 0.38 mg/dL (0.60-1.20); Glomerular Filtration Rate >60 (60-); Glucose, Blood 106 mg/dL (70-99); Potassium, Blood 4.3 mmol/L (3.5-5.5); Sodium, Blood 129 mmol/L (136-145)
[2021-09-14] MEDS ORDERED: Roxicodone5 MG PO (21:11)
== END 2021-09-14 21:35 | disposition home or self-care (01) ==
LOC: ER 14:57
PROVIDERS: Physician Assistant
DX: G89.18 Other acute postprocedural pain (principal); M25.552 Pain in left hip; G89.29 Other chronic pain; M54.50 Low back pain, unspecified; F17.220 Nicotine dependence, chewing tobacco, uncomplicated
CPT/HCPCS: 36415; 72100; 73502; 80048; 85025; J1170

== ENCOUNTER 2021-09-23 10:42 | Emergency (ER) | payer OTHER ==
[~2021-09-23] VITALS: Ht 167.6 cm; Wt 63.5 kg
[~2021-09-23 10:42] MED LIST changes: +Roxicodone5 MG PO
== END 2021-09-23 11:45 | disposition home or self-care (01) ==
LOC: ER 10:42
DX: G89.18 Other acute postprocedural pain (principal); M25.552 Pain in left hip; F17.220 Nicotine dependence, chewing tobacco, uncomplicated
CPT/HCPCS: 99283

== ENCOUNTER 2021-09-24 10:12 | Emergency (ER) | payer OTHER ==
[~2021-09-24] VITALS: Ht 177.8 cm; Wt 74.8 kg
== END 2021-09-24 11:09 | disposition home or self-care (01) ==
LOC: ER 10:12
DX: Z47.89 Encounter for other orthopedic aftercare (principal); F17.220 Nicotine dependence, chewing tobacco, uncomplicated; Z98.890 Other specified postprocedural states
CPT/HCPCS: 99282

== ENCOUNTER 2021-10-03 08:48 | Emergency (ER) | payer OTHER ==
[~2021-10-03] VITALS: Ht 152.4 cm; Wt 54.4 kg
== END 2021-10-03 12:01 | disposition home or self-care (01) ==
LOC: ER 08:48
DX: G89.18 Other acute postprocedural pain (principal); F10.129 Alcohol abuse with intoxication, unspecified; M25.552 Pain in left hip; F17.220 Nicotine dependence, chewing tobacco, uncomplicated; F17.210 Nicotine dependence, cigarettes, uncomplicated; W05.0XXA Fall from non-moving wheelchair, initial encounter
CPT/HCPCS: 73522; 96374; 99283-25; J1885

== ENCOUNTER 2021-10-04 04:44 | Emergency (ER) | payer OTHER ==
[~2021-10-04] VITALS: Ht 152.4 cm; Wt 43.1 kg
== END 2021-10-04 06:05 | disposition home or self-care (01) ==
LOC: ER 04:44
DX: G89.18 Other acute postprocedural pain (principal); M25.552 Pain in left hip; G89.29 Other chronic pain; F10.129 Alcohol abuse with intoxication, unspecified
CPT/HCPCS: 73552; 99283-25

== ENCOUNTER 2022-04-24 15:22 | Emergency (ER) | payer OTHER ==
[~2022-04-24] VITALS: Ht 167.6 cm; Wt 68.0 kg
[~2022-04-24 15:22] MED LIST changes: +CEPH500 PO; +Keflex500 MG PO
== END 2022-04-24 16:14 | disposition left against medical advice (07) ==
LOC: ER 15:22
DX: R23.4 Changes in skin texture (principal); F17.220 Nicotine dependence, chewing tobacco, uncomplicated; Z53.29 Procedure and treatment not carried out because of patient's decision for other reasons
CPT/HCPCS: 99283

== ENCOUNTER 2022-05-09 15:53 | Emergency (ER) | payer OTHER ==
[~2022-05-09] VITALS: Ht 182.9 cm; Wt 90.7 kg
[2022-05-09] MEDS ORDERED: CEPH500 PO (17:22)
== END 2022-05-09 17:28 | disposition home or self-care (01) ==
LOC: ER 15:53
DX: L03.116 Cellulitis of left lower limb (principal); L03.115 Cellulitis of right lower limb; F17.220 Nicotine dependence, chewing tobacco, uncomplicated
CPT/HCPCS: 99283

== ENCOUNTER 2022-05-20 19:24 | Emergency (ER) | payer OTHER ==
[~2022-05-20] VITALS: Ht 172.7 cm; Wt 63.5 kg
== END 2022-05-20 22:29 | disposition home or self-care (01) ==
LOC: ER 19:24
DX: R21 Rash and other nonspecific skin eruption (principal); F17.220 Nicotine dependence, chewing tobacco, uncomplicated
CPT/HCPCS: 99282

== ENCOUNTER 2022-08-30 16:01 | Emergency (ER) | payer OTHER ==
[~2022-08-30] VITALS: Ht 170.2 cm; Wt 54.4 kg
[2022-08-30] MEDS ORDERED: LIDO700A20 TOP (18:34)
[2022-08-30] MEDS ORDERED: Acetaminophen650 M1 PO (18:34)
[2022-08-30] MEDS ORDERED: IBUP600 PO (18:34)
== END 2022-08-30 19:42 | disposition home or self-care (01) ==
LOC: ER 16:01
DX: M25.552 Pain in left hip (principal); M54.50 Low back pain, unspecified; F17.220 Nicotine dependence, chewing tobacco, uncomplicated; Z79.899 Other long term (current) drug therapy
CPT/HCPCS: 72100; 73502; A9270; J1885

== ENCOUNTER 2022-08-30 21:32 | Emergency (ER) | payer OTHER ==
[~2022-08-30] VITALS: Ht 172.7 cm; Wt 68.0 kg
[~2022-08-30 21:32] MED LIST changes: +Acetaminophen650 M1 PO; +LIDO700A20 TOP
== END 2022-08-31 00:06 | disposition home or self-care (01) ==
LOC: ER 21:32
DX: M54.50 Low back pain, unspecified (principal); G89.29 Other chronic pain; F17.210 Nicotine dependence, cigarettes, uncomplicated; F17.220 Nicotine dependence, chewing tobacco, uncomplicated; Z79.899 Other long term (current) drug therapy
CPT/HCPCS: 99282

== ENCOUNTER 2022-09-16 11:24 | Emergency (ER) | payer OTHER ==
[~2022-09-16] VITALS: Ht 170.2 cm; Wt 79.4 kg
== END 2022-09-16 16:00 | disposition home or self-care (01) ==
LOC: ER 11:24
DX: R60.0 Localized edema (principal); I50.9 Heart failure, unspecified; F17.220 Nicotine dependence, chewing tobacco, uncomplicated; Z79.899 Other long term (current) drug therapy
CPT/HCPCS: 99284